=== PATIENT | male | born 1995 | race Caucasian/White ===

== ENCOUNTER 2017-04-07 10:11 | Emergency (ER) | payer MEDICAID ==
[2017-04-07 10:22] VITALS: BP 98/78; PULSE 90; RESP 18; TEMP 99.3; O2SAT 96
--- NOTE | 2017-04-07 10:46 | EDPHY ---
H & P Stated Complaint: 1 wk chest tightness/fever/stuffy nose/cox/body aches n/v HPI/ROS: Chief complaint: Cold symptoms History of present illness: This is a 21-year-old male who presents to the emergency department for evaluation of cold symptoms. Patient reports the onset of symptoms a week ago. He reports tactile fever, headache, runny nose, nasal congestion, cough, chest congestion, body aches and fatigue. Symptoms have been persistent. He has been treating with OTC medications with some improvement but not resolution of symptoms. He denies other associated signs or symptoms including neck pain, no trouble breathing, no rash. He does report prior to the onset of symptoms was traveling in [place]. He developed symptoms upon returning home. He reports he stopped in [place] to see a friend a friend had similar symptoms. Review of systems: A 10 point review of systems was obtained and other than described above was neck - Personal History Current Tetanus/Diphtheria Vaccine: Unsure - Medical/Surgical History Hx Asthma: Yes Hx Chronic Respiratory Disease: No Hx Diabetes: No Hx Cardiac Disease: No Hx Renal Disease: No Hx Cirrhosis: No Hx Alcoholism: No Hx HIV/AIDS: No Hx Splenectomy or Spleen Trauma: No Other PMH: PNA/pericarditis - Social History Smoking Status: Never smoked - Physical Exam Exam: General Appearance: Alert, nontoxic. Eyes: Pupils equal and round no pallor or injection. ENT, Mouth: Mucous membranes moist. Respiratory: There are no retractions, lungs are clear to auscultation. Cardiovascular: Regular rate and rhythm. Gastrointestinal: Abdomen is soft and non tender, no masses, bowel sounds normal. Neurological: Alert and oriented x4. Strength and sensation intact and symmetrical. No meningismus. Skin: Warm and dry, no rashes. Musculoskeletal: Neck is supple non tender. Extremities are symmetrical, full range of motion. Psychiatric: Patient is oriented X 3, there is no agitation. Constitutional: Initial Vital Signs Temperature (C) 37.4 C 04/07/17 10:19 Heart Rate 90 04/07/17 10:19 Respiratory Rate 18 04/07/17 10:19 Blood Pressure 98/78 L 04/07/17 10:19 O2 Sat (%) 96 04/07/17 10:19 O2 Delivery Mode Room Air Allergies/Adverse Reactions: No Known Allergies Allergy (Verified 04/07/17 10:17) Home Medications: Medication Instructions Recorded Albuterol [Proventil] 17 gm IH 12/13/10 Medical Decision Making - Diagnostics Imaging Results: Imaging Impressions Chest X-Ray 04/07/17 10:38 Impression: Prominence of perihilar interstitial markings and peribronchial cuffing. Findings are nonspecific but can be seen with bronchitis, reactive airway disease, or viral process. Imaging: I viewed and interpreted images myself ED Course/Re-evaluation: Patient seen under the supervision of my primary supervising physician Dr. Cony Leija. Patient presents to the emergency department for cold symptoms. He is nontoxic. Influenza A positive. Outside treatment time frame for Tamiflu. He is appropriate for outpatient management. He is discharged home. Home care is discussed. Return precautions are given. Patient voiced understanding and agreement with plan. Differential Diagnosis: Included but not limited to influenza, URI, bronchitis, pneumonia - Data Points Laboratory Results: 04/07/17 10:15 Nasal Influenza A PCR FLU A DETECTED H (NEGATIVE) Nasal Influenza B PCR NEGATIVE FOR FLU B (NEGATIVE) Departure - Departure Disposition: Home, Routine, Self-Care Clinical Impression: Influenza A Condition: Good Instructions: Influenza (ED) Additional Instructions: Follow-up with your primary care doctor next week for recheck If symptoms worsen or new symptoms develop return to the emergency room for recheck Referrals: Yehuda Stewart, [Primary Care Provider] - As per Instructions Stand Alone Forms: Work Excuse
== END 2017-04-07 11:38 | disposition home or self-care (01) ==
DX: J10.1 Influenza due to other identified influenza virus with other respiratory manifestations (principal)

== ENCOUNTER 2017-11-23 00:16 | Emergency (ER) | payer MEDICAID ==
[2017-11-23 01:40] VITALS: BP 112/62
--- NOTE | 2017-11-23 01:40 | EDPHY ---
H & P Stated Complaint: L ARM BUG BITE, INCREASING SWELLING Time Seen by Provider: 11/23/17 01:32 HPI/ROS: HPI The patient presents with left forearm pain, swelling, redness after a bug bite which occurred about 2 hr prior to arrival. He went outside to take out the trash and felt a sharp sting on his anterior forearm which was moderate in severity. Since then he has noticed progressive redness, warmth, swelling of his forearm. REVIEW OF SYSTEMS Constitutional: No fever, no chills. Musculoskeletal: No back pain. Skin: See HPI Neurological: No headache. PMHx: Healthy PHYSICAL General Appearance: Alert, no distress Respiratory: Breathing comfortably Neurological: A&O, moves all extremities Skin: Warm and dry, left anterior forearm with area of erythema, warmth, mild tenderness which extends to 2/3 of the proximal forearm without any limited range of motion Extremities: symmetrical, full range of motion Psychiatric: Patient is oriented X 3, there is no agitation Source: Patient Exam Limitations: No limitations - Personal History Current Tetanus Diphtheria and Acellular Pertussis (TDAP): Yes - Medical/Surgical History Hx Asthma: Yes Hx Chronic Respiratory Disease: No Hx Diabetes: No Hx Cardiac Disease: No Hx Renal Disease: No Hx Cirrhosis: No Hx Alcoholism: No Hx HIV/AIDS: No Hx Splenectomy or Spleen Trauma: No Other PMH: PNA/pericarditis - Social History Smoking Status: Never smoked Constitutional: Initial Vital Signs Temperature (C) 36.7 C 11/23/17 00:21 Heart Rate 68 11/23/17 00:21 Respiratory Rate 18 11/23/17 00:21 Blood Pressure 131/81 H 11/23/17 00:21 O2 Sat (%) 97 11/23/17 00:21 O2 Delivery Mode Room Air Allergies/Adverse Reactions: No Known Allergies Allergy (Verified 04/07/17 10:17) Home Medications: Medication Instructions Recorded Albuterol [Proventil] 17 gm IH 12/13/10 Cephalexin [Keflex (*)] 500 mg PO Q6H #28 cap 11/23/17 Medical Decision Making Differential Diagnosis: 22-year-old male status post bug bite to left forearm with large localized reaction versus early cellulitis. No signs of anaphylaxis. Have encouraged him to use ibuprofen and Benadryl as well as ice packs. If he has any worsening redness he is advised to start taking the Keflex which I have prescribed to him within 12 hr. He is happy with this plan. Departure - Departure Disposition: Home, Routine, Self-Care Clinical Impression: Bug bite Qualifiers: Encounter type: initial encounter Qualified Code(s): W57.XXXA - Bitten or stung by nonvenomous insect and other nonvenomous arthropods, initial encounter Condition: Good Instructions: Cephalexin (By mouth), Insect Bite or Sting (ED) Additional Instructions: I recommend that you use ibuprofen 400 mg every 6 hr with Benadryl 25 mg every 6 hr as needed until the redness and swelling improves. You should use an ice pack for 20 min at a time several times a day. If tomorrow morning the redness and swelling is worse, I do recommend you start the antibiotic I have prescribed for you. Otherwise, if things are improving, there is no need to start the antibiotic. You should return to the emergency department if you develop a fever, vomiting, or worse in any way. Referrals: [facility],. [Clinic] - As per Instructions Prescriptions: Cephalexin [Keflex (*)] 500 mg PO Q6H #28 cap
== END 2017-11-23 01:57 | disposition home or self-care (01) ==
DX: S50.862A Insect bite (nonvenomous) of left forearm, initial encounter (principal)

== ENCOUNTER 2018-09-03 00:29 | Inpatient (IN) | payer MEDICAID | END 2018-09-05 13:15 | disposition home or self-care (01) | LOC: BBEH 12:30 ==